=== PATIENT | female | born 1965 | race Caucasian/White ===

== ENCOUNTER 2020-09-20 08:51 | Inpatient (IN) | payer MEDICAID ==
[~2020-09-20] VITALS: Ht 162.6 cm; Wt 72.1 kg
--- NOTE | 2020-09-20 09:10 | NUR ---
PT ERICKSON FROM OUTSIDE [facility] C/O BLE PAIN AND SWELLING FOR "DAYS NOW" PARAPLEGIC. COVERED W/ OWN FECES. GOWNED, CLEANED. VSS ASSISTANT INFANT TEACHER. AWAITING MD SERNA.
--- NOTE | 2020-09-20 09:12 | NUR ---
DR LONG AT BEDSIDE FOR EVAL.
[2020-09-20] MEDS ORDERED: HYDROCODONE/APAP 5/325MG TABLET PO ONE (09:30)
[2020-09-20 09:51] LABS: BASOPHILS % (AUTO) 0.4 % (0.0-2.0); EOSINOPHILS % (AUTO) 1.7 % (0.0-6.0); HEMATOCRIT 38 % (33-45); HEMOGLOBIN 12.5 g/dL (11.5-14.8); LYMPHOCYTES # (AUTO) 2.5 /CMM (0.8-4.8); LYMPHOCYTES % (AUTO) 24.8 % (20.0-44.0); MEAN CORPUSCULAR HGB CONC 33 g/dl (31.0-36.0); MEAN CORPUSCULAR VOLUME 94 fL (82-100); MONOCYTES % (AUTO) 10.5 % (2.0-12.0); NEUTROPHILS # (AUTO) 6.2 /CMM (1.8-8.9); NEUTROPHILS % (AUTO) 62.6 % (43.0-81.0); PLATELET COUNT (AUTO) 458 /CMM (150-450); RED BLOOD CELL COUNT(AUTO) 4.07 MIL/uL (4.0-5.2); WHITE BLOOD COUNT (AUTO) 9.9 K/uL (4.3-11.0)
[2020-09-20] MEDS ORDERED: HYDROCODONE/APAP 5/325MG TABLET ONE ×2 (09:57→17:50)
[2020-09-20] MEDS ORDERED: CEFEPIME 1 GM in IV D5W 50 ML IV ONE (10:00)
[2020-09-20] MEDS ORDERED: VANCOMYCIN 1 GM in IV D5W 250 ML IV ONE (10:00)
--- NOTE | 2020-09-20 10:00 | NUR ---
REFUSING DUPLEX ULTRASOUND. DR LONG AWARE.
[2020-09-20 10:03] LABS: CALCIUM, SERUM 9.2 mg/dL (8.5-10.1); CARBON DIOXIDE 26 mmol/L (21-32); CHLORIDE 106 mmol/L (98-107); CREATININE 0.6 mg/dL (0.6-1.3); GLUCOSE 99 mg/dL (74-106); POTASSIUM 4.1 mmol/L (3.5-5.1); SODIUM SERUM 143 mmol/L (136-145); UREA NITROGEN, BLOOD 6 mg/dL (7-18)
[2020-09-20 10:09] LABS: ALANINE AMINOTRANSFERASE 20 U/L (12-78); ALKALINE PHOSPHATASE 103 U/L (46-116); ASPARTATE AMINOTRANSFERASE 28 U/L (15-37); TOTAL PROTEIN, SERUM 6.8 g/dL (6.4-8.2)
[2020-09-20] MEDS ORDERED: IV NS 0.9% 1,000 ML BAG IV ONE ×2 (11:00)
[2020-09-20 12:10] LABS: BILIRUBIN,DIRECT 0.1 mg/dL (0.0-0.2); BILIRUBIN,TOTAL 0.2 mg/dL (0.2-1.0)
[2020-09-20] MEDS ORDERED: MAGNESIUM HYDROXIDE 30 ML UDC PO PRN (14:30)
[2020-09-20] MEDS ORDERED: ZOLPIDEM TARTRATE 5 MG TABLET PO PRN (14:30)
[2020-09-20] MEDS ORDERED: MAG HYDROX/AL HYDROX/SIMETH 30 ML UDC PO PRN (14:30)
[2020-09-20] MEDS ORDERED: ENOXAPARIN SODIUM 40 MG/0.4 ML DISP.SYRIN SQ SCH (14:30)
[2020-09-20] MEDS ORDERED: Z GUARD REMEDY 2 OZ OINT TP PRN (14:30)
[2020-09-20] MEDS ORDERED: FUROSEMIDE 40 MG/4 ML VIAL IV ONE (14:30)
[2020-09-20] MEDS ORDERED: ONDANSETRON HCL/PF 4 MG/2 ML VIAL IVP PRN (14:30)
[2020-09-20] MEDS ORDERED: ACETAMINOPHEN 325 MG TABLET PO PRN (14:30)
[2020-09-20] MEDS ORDERED: FUROSEMIDE 40 MG/4 ML VIAL ONE (14:58)
--- NOTE | 2020-09-20 15:42 | NUR ---
Community Dietitian consult requested by ASH Arroyo as patient has had multiple admissions. SW met with the patient at bedside. Patient is a 54-year-old female. Patient is known to this SW from prior admissions. Patient reported to this SW today that she is here for feeling constipated, feeling like she will fall, and complaints of her feet. When speaking to this patient, patient closed her eyes, pretended to fall asleep and snore. Patient then began to mumble [address] [place] [address] when this SW asked the patient to elaborate patient stated, it is a way to make money. Patient then again closed her eyes, pretended to fall asleep and snore however this time did not mumble and did not speak again with this SW. SW attempted to redirect this patient several times however patient did not want to speak to this SW. Plan: SW will attempt to meet with the patient again to complete SS assessment. SW will coordinate with nursing and case management to ensure a safe and proper discharge for the patient. SW remains available for all needs regarding this patient.
--- NOTE | 2020-09-20 16:20 | NUR ---
This SW called Adult Protective Services Mandated Reporters Hotline to consult with APS SW regarding this patient. This SW was unsuccessful to consult with an APS Scrap Yard Worker regarding this patient. SW wanted to consult regarding self-neglect. This SW was on hold with APS for approximately 35 minutes. SW remains available for all needs regarding this patient.
[2020-09-20] MEDS: HYDROCODONE/APAP 5/325MG TABLET PO PRN (17:54)
--- NOTE | 2020-09-20 17:54 | NUR ---
PT REFUSING PAIN MEDICATION STATING " I CHANGE MY MIND." "NORCO DOES NOT WORK."
--- NOTE | 2020-09-20 18:38 | NUR ---
CALLED PHARMACY FOR LINNEAO. NOT AVAILABLE AT THIS TIME. WAS TOLD TO CALL AFTER 10 MINS.
[2020-09-20] MEDS: VANCOMYCIN 1.25 GM in IV D5W 250 ML IV SCH (19:23)
--- NOTE | 2020-09-20 19:32 | NUR ---
REPORT GIVEN TO WET PROCESS MILLER HEAD JANA RANKIN FOR NEERU.
[2020-09-20] MEDS: ZOSYN IVPB 3.375 G in IV D5W 50ml IV SCH (20:00)
--- NOTE | 2020-09-20 20:09 | NUR ---
PT REFUSING MEDICATIONS. STATED "GET AWAY FROM ME"
[2020-09-20] MEDS: ENOXAPARIN SODIUM 40 MG/0.4 ML DISP.SYRIN SQ SCH (21:00)
--- NOTE | 2020-09-20 21:01 | NUR ---
ATTEMPTED TO EDUCATE PATIENT REGARDING ADMINISTERING LOVENOX, PT STATES "FUCK OFF". RISKS AND BENEFITS EXPLAINED TO PATIENT. ELAINE HODGE NP MADE AWARE
--- NOTE | 2020-09-20 21:16 | NUR ---
SPOKE TO THE PATIENT REGARDING GIVING LOVENOX. PT REFUSED MEDS.
--- NOTE | 2020-09-20 22:44 | NUR ---
PT IN BED ASLEEP, VSS.
--- NOTE | 2020-09-20 23:20 | NUR ---
PT RESTING. VSS.
--- NOTE | 2020-09-21 00:51 | NUR ---
PT ASKED FOR FOOD, PT WAS PROVIDED WITH FOOD AND WATER.
[2020-09-21] MEDS: VANCOMYCIN 1.25 GM in IV D5W 250 ML IV SCH ×3 (02:19→18:00)
--- NOTE | 2020-09-21 02:19 | NUR ---
SPOKE TO THE PT REGARDING GIVING ANTIBIOTICS. PT STATED "GET THE FUCK AWAY FROM ME." RISKS AND BENEFITS EXPLAINED TO PATIENT.
[2020-09-21] MEDS ORDERED: PIPERACILLIN /TAZOBACTAM 3.375 G VIAL IV ONE (02:23)
[2020-09-21] MEDS: ZOSYN IVPB 3.375 G in IV D5W 50ml IV SCH ×4 (02:27→20:00)
--- NOTE | 2020-09-21 02:28 | NUR ---
MEDICATION GIVEN TO PT. VSS. BLANKETS PROVIDED.
--- NOTE | 2020-09-21 03:30 | NUR ---
PT AGREED TO THE ZOSYN BUT NOT VANCOMYCIN.
--- NOTE | 2020-09-21 03:37 | NUR ---
PT STATING "I WANT TO GET OUT OF HERE, UNLESS YOU GIVE ME JUICE." PT WAS PROVIDED WITH JUICE. PT THEN STATED "I DO NOT WANT ANY OF YOU AROUND ME."
--- NOTE | 2020-09-21 05:25 | NUR ---
PT ASLEEP, VSS. PROVIDED WITH BLANKET.
[2020-09-21 06:18] LABS: BASOPHILS % (AUTO) 0.3 % (0.0-2.0); EOSINOPHILS % (AUTO) 1.9 % (0.0-6.0); HEMATOCRIT 37 % (33-45); HEMOGLOBIN 12.1 g/dL (11.5-14.8); LYMPHOCYTES # (AUTO) 2.2 /CMM (0.8-4.8); LYMPHOCYTES % (AUTO) 26.5 % (20.0-44.0); MEAN CORPUSCULAR HGB CONC 33 g/dl (31.0-36.0); MEAN CORPUSCULAR VOLUME 95 fL (82-100); MONOCYTES # (AUTO) 0.8 /CMM (0.1-1.30); MONOCYTES % (AUTO) 9.8 % (2.0-12.0); NEUTROPHILS # (AUTO) 5.2 /CMM (1.8-8.9); NEUTROPHILS % (AUTO) 61.5 % (43.0-81.0); PLATELET COUNT (AUTO) 416 /CMM (150-450); RED BLOOD CELL COUNT(AUTO) 3.92 MIL/uL (4.0-5.2); WHITE BLOOD COUNT (AUTO) 8.4 K/uL (4.3-11.0)
[2020-09-21 06:29] LABS: CALCIUM, SERUM 9.3 mg/dL (8.5-10.1); CREATININE 0.7 mg/dL (0.6-1.3); PHOSPHORUS 4.5 mg/dL (2.5-4.9)
--- NOTE | 2020-09-21 06:55 | NUR ---
PT ASKING FOR WARM BLANKET. WARM BLANKET GIVEN. VSS.
--- NOTE | 2020-09-21 07:39 | NUR ---
REPORT GIVEN TO GERMAINE BATES FOR NEERU
[2020-09-21] MEDS ORDERED: HYDROCODONE/APAP 5/325MG TABLET ONE ×2 (10:54→21:54)
[2020-09-21] MEDS: HYDROCODONE/APAP 5/325MG TABLET PO PRN ×2 (11:03→22:02)
--- NOTE | 2020-09-21 11:05 | NUR ---
REPORT TO MACIEL BATES FOR NEERU.
--- NOTE | 2020-09-21 11:13 | NUR ---
APS report filed today for self-neglect (refusing medical care, refusing placement, leaving AMA, non-compliant with outpatient follow up care). SW called APS [phone] and spoke with Mariann Muro. Intake ID#[id number].
--- NOTE | 2020-09-21 11:45 | NUR ---
pt pulled out her iv line. she states, "im tired of this iv atb shit. thats why i took it out."attempted to re-insert iv but pt stated, "im not doing shit unless you give me lunch"
--- NOTE | 2020-09-21 12:05 | NUR ---
provided pt janeth lunch
--- NOTE | 2020-09-21 12:15 | NUR ---
pt ate 100% on lunch, attempted and offered to insert iv, shes still refusing. she stated, "leave me alone you stupid bitch. im not getting no damn iv." explained risks and benefits. still refused. Addendum: 09/21/20 at 1351 by DCABANOS kody made aware
--- NOTE | 2020-09-21 14:05 | NUR ---
pt has a zosyn due at 1400, i reoffered to place an iv once again. she refused and cursed me out. she said, "didnt i tell you to leave me alone, stupic bitch!. i aint getting no iv placed!" explained risks and benefits. kody todd made aware.
--- NOTE | 2020-09-21 14:06 | NUR ---
familiar with patient case from her previous multiple admissions.Patient is reported homeless and has hx of being non-compliant. She uses a wheelchair for mobility due to c/o of BLE weakness related to back injury and chronic leg pain.She is independent with adl's.herbarium worker and staff had offered longterm placement but she refused and prefers to make her own dc planning arrangement. Will advise to f/u with her pcp and seek medical attention if symptoms worsen or failed to improved. Addendum: 09/21/20 at 1407 by ANOOP LUGO RN Amended: Links added.
--- NOTE | 2020-09-21 15:21 | NUR ---
JUAN received follow up call from APS worker, Yaa [phone] who recommended that pt. be assessed by Crisis team for self-neglect. JUAN informed Yaa that pt. is alert & oriented x 4 . JUAN consulted with SANDSTONE SPLITTEREnid who stated it is not appropriate as pt. is alert & oriented and has right /ability to make choices for self. Pt. to be admitted to [facility] for Cellulitis per ED. SW will be available as needed.
--- NOTE | 2020-09-21 18:04 | NUR ---
vanco due at 1800. pt still strongly refusing for iv to be placed, refusing iv atb stated, "im not gonna let any iv placed right now. so get the fuck away from me." explained risks and benefits. still refused.
[2020-09-21] MEDS: ENOXAPARIN SODIUM 40 MG/0.4 ML DISP.SYRIN SQ SCH (21:00)
--- NOTE | 2020-09-21 23:47 | NUR ---
PATIENT STATES, "FUCK YOU, I DON'T WANT YOUR OFFER FOR ANYTHING. I DON'T WANT ANY OFFER FROM THIS PLACE."
--- NOTE | 2020-09-22 | NUR ---
pt refusing any iv medication, states will only take medication oraly. does not want to be bothered at the moment vss
[2020-09-22] MEDS: VANCOMYCIN 1.25 GM in IV D5W 250 ML IV SCH (01:58)
[2020-09-22] MEDS: ZOSYN IVPB 3.375 G in IV D5W 50ml IV SCH (01:58)
--- NOTE | 2020-09-22 03:11 | NUR ---
PATIENT STATES, "IF YOU COME BACK HERE, AND I SEE YOU, I WILL THROW MY FECAL MATTER AT YOU, SO FUCK OFF."
[2020-09-22] MEDS ORDERED: HYDROCODONE/APAP 5/325MG TABLET ONE (03:40)
[2020-09-22] MEDS: HYDROCODONE/APAP 5/325MG TABLET PO PRN (03:51)
[2020-09-22 05:10] VITALS: BP 132/86
--- NOTE | 2020-09-22 05:12 | NUR ---
pt remains in bed sleeping, does not want to be bothered, vss
--- NOTE | 2020-09-22 05:53 | NUR ---
PT REFUSED MORNING LABS.
--- NOTE | 2020-09-22 06:11 | NUR ---
Patient does not wish to proceed with medical care recommended by Dr. Blaise Mendieta. Patient given information related to possible complications, up to and including , which could occur as a result of leaving the hospital at this time. Patient verbalizes understanding of risks involved due to leaving against medical advice. Patient has signed AMA form. Risk and benefits explained to pt. Pt wheeled out of E.D.
--- NOTE | 2020-09-25 16:19 | NUR ---
JUAN received follow up call from APS worker, Elly [phone] who asked JUAN if pt. was still in hospital. JUAN notified Elly that pt. left AMA on 09/22/2020. Elly expressed understanding. JUAN will be available as needed.
== END 2020-09-22 06:11 | disposition left against medical advice (07) | DRG 383 ==
LOC: ER 08:53 → TRANSITION 17:20
PROVIDERS: ADMIT Nurse Practitioner Acute Care; ATTEND Nurse Practitioner Acute Care
DX: L03.116 Cellulitis of left lower limb (principal); L03.115 Cellulitis of right lower limb; G82.20 Paraplegia, unspecified; E44.1 Mild protein-calorie malnutrition; D68.69 Other thrombophilia; E87.2 Acidosis; Z91.19 Patient's noncompliance with other medical treatment and regimen; E88.09 Other disorders of plasma-protein metabolism, not elsewhere classified; R53.1 Weakness; Z59.0 Homelessness; F99 Mental disorder, not otherwise specified; L89.159 Pressure ulcer of sacral region, unspecified stage; Z68.27 Body mass index [BMI] 27.0-27.9, adult
CPT/HCPCS: 36415; 71045-TC; 80048-TC; 80061-TC; 80076-TC; 80202-TC; 83605-TC; 83735-TC; 83880; 84100-TC; 84484-TC; 85025-TC; 85730-TC; 87040-TC; 87081-TC; 93307-TC; A4362; C9803; G0378; J0692; J1650; J1940; J2543; J3370; J7030; J7060

== ENCOUNTER 2020-10-05 07:05 | Emergency (ER) | payer MEDICAID ==
[~2020-10-05] VITALS: Ht 162.6 cm; Wt 72.1 kg
[2020-10-05 07:05] VITALS: BP 127/67
--- NOTE | 2020-10-05 09:05 | NUR ---
dressing change to r foot done. diaper changed and provided w/ dry clothing. agitated and wont sign discharge paper states "i am not a les" left not signing discharge papers.
== END 2020-10-05 09:08 | disposition home or self-care (01) ==
LOC: ER 07:07
DX: L03.116 Cellulitis of left lower limb (principal); L03.115 Cellulitis of right lower limb; G82.20 Paraplegia, unspecified; Z59.0 Homelessness; Z88.6 Allergy status to analgesic agent; Z88.8 Allergy status to other drugs, medicaments and biological substances
CPT/HCPCS: 99283; A6403

== ENCOUNTER 2025-07-25 21:01 | Emergency (ER) | payer MEDICAID ==
[~2025-07-25] VITALS: Ht 160 cm; Wt 73.5 kg
[2025-07-25] MEDS ORDERED: MORPHINE SULFATE IR 15 MG TABLET ONE (22:22)
[2025-07-25] MEDS: MORPHINE SULFATE IR 15 MG TABLET PO ONE (22:40)
[2025-07-26 01:47] VITALS: BP 112/77; TEMP 98.6; O2SAT 97
== END 2025-07-26 01:48 | disposition home or self-care (01) ==
LOC: ER 21:02
DX: M25.551 Pain in right hip (principal); G82.20 Paraplegia, unspecified; Z79.891 Long term (current) use of opiate analgesic; Z88.8 Allergy status to other drugs, medicaments and biological substances
CPT/HCPCS: 73501; 73502